=== PATIENT | male | born 1990 | race Caucasian/White ===

== ENCOUNTER 2018-11-05 10:25 | Emergency (ER) | payer OTHER ==
[~2018-11-05] VITALS: Ht 170.2 cm; Wt 68.0 kg
[2018-11-05] MEDS ORDERED: IBUPROFEN 800800 M1 PO (11:08)
[2018-11-05] MEDS ORDERED: NORCO 5-325 TA1 EAC1 PO (11:08)
[2018-11-05 11:27] VITALS: BP 126/83
== END 2018-11-05 11:30 | disposition home or self-care (01) ==
LOC: M.ERS 10:25
DX: M25.562 Pain in left knee (principal)